=== PATIENT | female | born 1955 | race Two or more races ===

== ENCOUNTER 2017-06-12 11:12 | Emergency (ER) | payer OTHER ==
[~2017-06-12] VITALS: Ht 154.9 cm; Wt 78.0 kg
[2017-06-12 14:10] VITALS: BP 176/88
== END 2017-06-12 14:47 | disposition home or self-care (01) ==
LOC: ER 11:12
DX: M79.605 Pain in left leg (principal); M79.89 Other specified soft tissue disorders; E78.5 Hyperlipidemia, unspecified; I10 Essential (primary) hypertension; E07.9 Disorder of thyroid, unspecified; F17.210 Nicotine dependence, cigarettes, uncomplicated; Z90.710 Acquired absence of both cervix and uterus
CPT/HCPCS: 93971

== ENCOUNTER 2020-12-11 10:59 | Inpatient (IN) | payer OTHER ==
[~2020-12-11] VITALS: Ht 152.4 cm; Wt 107.6 kg
[2020-12-11] MEDS ORDERED: ASPirin 81 mg TAB PO ONE (11:15)
[2020-12-11 11:40] LABS: Eosinophils # (auto) 0 10 ^3/uL (0-0.8); Lymphocytes # (auto) 2.4 10 ^3/uL (0.4-5.4); Nucleated Red Blood Cells % 0.2 %
[2020-12-11 11:42] LABS: Basophils # (auto) 0.1 10 ^3/uL (0-0.2); Basophils % (auto) 1.3 % (0.0-2.0); Eosinophils % (auto) 0.2 % (0.0-7.0); Hematocrit 22.3 % (36.0-46.0); Lymphocytes % (auto) 27.1 % (10.0-50.0); Mean Corpuscular Hemoglobin 16.1 pg (28.0-32.0); Mean Corpuscular Hgb Conc. 29.3 g/dL (32.0-36.0); Mean Corpuscular Volume 54.9 fL (80.0-100.0); Monocytes # (auto) 0.8 10 ^3/uL (0-1.3); Monocytes % (auto) 8.4 % (0.0-12.0); Neutrophils # (auto) 5.7 10 ^3/uL (1.6-8.6); Red Blood Cells 4.06 10^6/uL (4.0-5.20); Red Cell Distribution Width 19.9 % (11.8-14.3)
[2020-12-11 12:09] LABS: Anion Gap 8 (5-15); Blood Urea Nitrogen 5 mg/dL (7-18); Calcium 9.4 mg/dL (8.5-10.1); Carbon Dioxide 26 mmol/L (21-32); Chloride 102 mmol/L (98-107); Glucose 104 mg/dL (74-106); Magnesium 2.5 mg/dL (1.6-2.6); Sodium 136 mmol/L (136-145)
[2020-12-11 12:16] LABS: Alanine Aminotransferase 13 U/L (13-56); Alkaline Phosphatase 117 U/L (45-117); Aspartate Aminotransferase 12 U/L (15-37); BUN/Creatinine Ratio 6.2; Bilirubin, Total 0.3 mg/dL (0.2-1.0); GFR African American 91 mL/min; GFR Non-African American 75 mL/min; Hemoglobin 6.5 g/dL (12.2-16.2); Total Protein 8.2 g/dL (6.4-8.2)
[2020-12-11] MEDS ORDERED: MORPHINE SULFATE INJECTION 2 MG/ML SYRG IV PRN ×3 (15:45→19:00)
[2020-12-11] MEDS ORDERED: NITROGLYCERIN 0.4 MG SL TAB SL PRN ×2 (15:45→19:00)
[2020-12-11] MEDS ORDERED: SODIUM FERR GLUC 62.5MG/5ML 125 MG in SODIUM CHL 0.9% 100 ML IV ONE (15:45)
[2020-12-11 16:28] LABS: % Iron Saturation 1.5 % (15-50)
[2020-12-11 17:19] VITALS: BP 133/70
[2020-12-11 17:34] VITALS: BP 145/74
[2020-12-11] MEDS ORDERED: PROCHLORPERAZINE MALEATE 10 MG TAB PO PRN (19:00)
[2020-12-11] MEDS ORDERED: LORazepam 0.5 MG TAB PO PRN (19:00)
[2020-12-11] MEDS ORDERED: HYDROcodone-ACET 5/325MG TAB PO PRN (19:00)
[2020-12-11] MEDS ORDERED: SUCRALFATE 1 GM/10 ML ORAL SUSP PO ONE (19:00)
[2020-12-11] MEDS ORDERED: ALUM & MAG HYDROX-SIMETH LIQ(MAALOX) 30 ML PO PRN (19:00)
[2020-12-11] MEDS ORDERED: LOSARTAN POTASSIUM 50 MG TAB PO ONE (19:00)
[2020-12-11] MEDS ORDERED: hydrALAZINE HCL 20 MG/ML VL IV PRN (19:00)
[2020-12-11] MEDS ORDERED: DOCUSATE SOD 100 MG CAP PO PRN (19:00)
[2020-12-11] MEDS ORDERED: HCTZ 25 MG TAB PO ONE (19:00)
[2020-12-11] MEDS ORDERED: ONDANSETRON HCL 4 MG/2 ML VIAL IV PRN (19:00)
[2020-12-11] MEDS ORDERED: cefTRIAXone 1GM/50ML D5W 50 ML IV ONE (19:00)
[2020-12-11] MEDS ORDERED: PANTOPRAZOLE 40 MG/10 ML VIAL INJ IV ONE (19:00)
[2020-12-11 19:15] VITALS: BP 155/43
[2020-12-11 20:15] VITALS: BP 145/82
[2020-12-11 20:51] LABS: Cholesterol 168 mg/dL (< 200)
[2020-12-11 21:01] LABS: HDL Cholesterol 30 mg/dL (40-59); LDL Cholesterol 113 mg/dL (< 100); Triglycerides 244 mg/dL (< 150)
[2020-12-11 22:00] VITALS: BP 145/82
[2020-12-11] MEDS: SODIUM CHLORIDE 0.9% 1,000 ML IV SCH (22:52)
[2020-12-11] MEDS: SUCRALFATE 1 GM/10 ML ORAL SUSP PO SCH (23:01)
[2020-12-11] MEDS: GEMFIBROZIL 600 MG TAB PO SCH (23:01)
[2020-12-12] MEDS: ACETAMINOPHEN 325 MG TAB PO PRN ×3 (03:33→20:43)
[2020-12-12] MEDS ORDERED: GEMF600T PO (03:46)
[2020-12-12] MEDS ORDERED: LEVO50TA7 PO (03:46)
[2020-12-12] MEDS ORDERED: HYDR25TA4 PO (03:46)
[2020-12-12] MEDS ORDERED: LOSA50TA7 PO (03:46)
[2020-12-12 05:00] VITALS: BP 133/74
[2020-12-12] MEDS: LEVOTHYROXINE SODIUM 50 MCG TAB PO SCH (06:19)
[2020-12-12] MEDS: SUCRALFATE 1 GM/10 ML ORAL SUSP PO SCH ×4 (06:19→21:47)
[2020-12-12] MEDS: cefTRIAXone 1GM/50ML D5W 50 ML IV SCH (08:34)
[2020-12-12 09:00] VITALS: BP 139/54
[2020-12-12] MEDS: PANTOPRAZOLE 40 MG/10 ML VIAL INJ IV SCH (09:59)
[2020-12-12] MEDS: ASPirin 81 mg TAB PO SCH (09:59)
[2020-12-12] MEDS: LOSARTAN POTASSIUM 50 MG TAB PO SCH (10:00)
[2020-12-12] MEDS: HCTZ 25 MG TAB PO SCH (10:00)
[2020-12-12] MEDS: GEMFIBROZIL 600 MG TAB PO SCH ×2 (10:00→21:47)
[2020-12-12] MEDS: EXEMESTANE 25 MG TABLET PO SCH (10:00)
[2020-12-12] MEDS ORDERED: ANASTRAZOLE 1 MG TABLET PO SCH (10:00)
[2020-12-12] MEDS: SODIUM CHLORIDE 0.9% 1,000 ML IV SCH ×2 (11:40→20:31)
[2020-12-12] MEDS ORDERED: IRON SUCROSE COMPLEX 200 MG in SODIUM CHL 0.9% 100 ML IV SCH (12:00)
[2020-12-12 13:00] VITALS: BP 133/75
[2020-12-12 13:47] LABS: Eosinophils # (auto) 0 10 ^3/uL (0-0.8); Hematocrit 25.6 % (36.0-46.0); Hemoglobin 7.6 g/dL (12.2-16.2); Mean Corpuscular Hgb Conc. 29.5 g/dL (32.0-36.0); Monocytes # (auto) 0.5 10 ^3/uL (0-1.3); Neutrophils # (auto) 4.6 10 ^3/uL (1.6-8.6)
[2020-12-12 13:49] LABS: Basophils # (auto) 0 10 ^3/uL (0-0.2); Basophils % (auto) 0.7 % (0.0-2.0); Eosinophils % (auto) 0.4 % (0.0-7.0); Lymphocytes # (auto) 1.8 10 ^3/uL (0.4-5.4); Lymphocytes % (auto) 25.7 % (10.0-50.0); Mean Corpuscular Volume 60.9 fL (80.0-100.0); Monocytes % (auto) 6.7 % (0.0-12.0); Neutrophils % (auto) 66.5 % (37.0-80.0); Nucleated Red Blood Cells % 1.2 %; Red Blood Cells 4.21 10^6/uL (4.0-5.20)
[2020-12-12 13:59] LABS: Red Cell Distribution Width 27.1 % (11.8-14.3)
[2020-12-12] MEDS: SODIUM FERR GLUC 62.5MG/5ML 125 MG in SODIUM CHL 0.9% 100 ML IV SCH (15:32)
[2020-12-12 17:00] VITALS: BP 128/78
[2020-12-12 22:00] VITALS: BP 137/60
[2020-12-13 05:00] VITALS: BP 112/70
[2020-12-13] MEDS: SUCRALFATE 1 GM/10 ML ORAL SUSP PO SCH ×4 (06:20→21:19)
[2020-12-13] MEDS: LEVOTHYROXINE SODIUM 50 MCG TAB PO SCH (06:20)
[2020-12-13 07:30] LABS: Basophils # (auto) 0.1 10 ^3/uL (0-0.2); Mean Corpuscular Volume 60.9 fL (80.0-100.0)
[2020-12-13 07:31] LABS: Eosinophils # (auto) 0.1 10 ^3/uL (0-0.8); Eosinophils % (auto) 1.3 % (0.0-7.0); Hematocrit 25.5 % (36.0-46.0); Hemoglobin 7.6 g/dL (12.2-16.2); Lymphocytes # (auto) 2.3 10 ^3/uL (0.4-5.4); Mean Corpuscular Hemoglobin 18.2 pg (28.0-32.0); Monocytes # (auto) 0.6 10 ^3/uL (0-1.3); Monocytes % (auto) 7.7 % (0.0-12.0); Neutrophils # (auto) 5.1 10 ^3/uL (1.6-8.6); Nucleated Red Blood Cells % 1.4 %; Red Blood Cells 4.19 10^6/uL (4.0-5.20); White Blood Cell 8.3 10^3/uL (4.4-10.8)
[2020-12-13 07:33] LABS: Red Cell Distribution Width 27.3 % (11.8-14.3)
[2020-12-13 07:49] LABS: Potassium 4.3 mmol/L (3.5-5.1)
[2020-12-13 07:51] LABS: INR 1.05 (0.9-1.15); Partial Thromboplastin Time 24.6 sec (23.6-33.0)
[2020-12-13 07:54] LABS: Albumin 3.3 g/dL (3.4-5.0); BUN/Creatinine Ratio 9.3; Bilirubin, Total 0.3 mg/dL (0.2-1.0); Calcium 8.9 mg/dL (8.5-10.1); Magnesium 2.6 mg/dL (1.6-2.6)
[2020-12-13 07:59] LABS: Phosphorus 4.2 mg/dL (2.5-4.90); Total Protein 7.2 g/dL (6.4-8.2)
[2020-12-13] MEDS: cefTRIAXone 1GM/50ML D5W 50 ML IV SCH (08:45)
[2020-12-13 09:00] VITALS: BP 142/79
[2020-12-13] MEDS: EXEMESTANE 25 MG TABLET PO SCH (10:00)
[2020-12-13] MEDS: PANTOPRAZOLE 40 MG/10 ML VIAL INJ IV SCH ×2 (10:57→21:19)
[2020-12-13] MEDS: ASPirin 81 mg TAB PO SCH (10:57)
[2020-12-13] MEDS: HCTZ 25 MG TAB PO SCH (10:58)
[2020-12-13] MEDS: LOSARTAN POTASSIUM 50 MG TAB PO SCH (10:58)
[2020-12-13] MEDS: GEMFIBROZIL 600 MG TAB PO SCH ×2 (10:59→21:19)
[2020-12-13] MEDS: SODIUM FERR GLUC 62.5MG/5ML 125 MG in SODIUM CHL 0.9% 100 ML IV SCH (12:30)
[2020-12-13 13:00] VITALS: BP 133/77
[2020-12-13] MEDS: SODIUM CHLORIDE 0.9% 1,000 ML IV SCH (21:00)
[2020-12-13 22:11] VITALS: BP 145/78
[2020-12-14 04:57] VITALS: BP 117/58
[2020-12-14 05:57] LABS: Basophils # (auto) 0.1 10 ^3/uL (0-0.2); Eosinophils # (auto) 0.1 10 ^3/uL (0-0.8); Hemoglobin 7.7 g/dL (12.2-16.2); Nucleated Red Blood Cells % 1.5 %
[2020-12-14 06:00] LABS: Basophils % (auto) 0.8 % (0.0-2.0); Eosinophils % (auto) 1.1 % (0.0-7.0); Hematocrit 25.7 % (36.0-46.0); Lymphocytes # (auto) 2.1 10 ^3/uL (0.4-5.4); Lymphocytes % (auto) 17.7 % (10.0-50.0); Mean Corpuscular Hemoglobin 18.2 pg (28.0-32.0); Mean Corpuscular Hgb Conc. 29.8 g/dL (32.0-36.0); Mean Corpuscular Volume 61.2 fL (80.0-100.0); Monocytes # (auto) 0.6 10 ^3/uL (0-1.3); Monocytes % (auto) 5.4 % (0.0-12.0); Neutrophils # (auto) 8.8 10 ^3/uL (1.6-8.6); White Blood Cell 11.8 10^3/uL (4.4-10.8)
[2020-12-14 06:20] LABS: INR 1.05 (0.9-1.15); Partial Thromboplastin Time 24.8 sec (23.6-33.0)
[2020-12-14 06:21] LABS: Potassium 3.8 mmol/L (3.5-5.1)
[2020-12-14 06:26] LABS: Red Cell Distribution Width 27.5 % (11.8-14.3)
[2020-12-14] MEDS: SUCRALFATE 1 GM/10 ML ORAL SUSP PO SCH ×4 (06:28→21:38)
[2020-12-14 06:29] LABS: Albumin 3.4 g/dL (3.4-5.0); BUN/Creatinine Ratio 11.6; Calcium 9.2 mg/dL (8.5-10.1); Magnesium 2.5 mg/dL (1.6-2.6)
[2020-12-14] MEDS: LEVOTHYROXINE SODIUM 50 MCG TAB PO SCH (06:29)
[2020-12-14 06:31] LABS: Bilirubin, Total 0.3 mg/dL (0.2-1.0); Phosphorus 4.6 mg/dL (2.5-4.90); Total Protein 7.4 g/dL (6.4-8.2)
[2020-12-14 08:00] VITALS: BP 128/70
[2020-12-14] MEDS: cefTRIAXone 1GM/50ML D5W 50 ML IV SCH (08:32)
[2020-12-14 09:04] VITALS: BP 128/70
[2020-12-14] MEDS: EXEMESTANE 25 MG TABLET PO SCH (09:46)
[2020-12-14] MEDS: ASPirin 81 mg TAB PO SCH ×2 (09:46→14:23)
[2020-12-14] MEDS: HCTZ 25 MG TAB PO SCH (09:48)
[2020-12-14] MEDS: PANTOPRAZOLE 40 MG/10 ML VIAL INJ IV SCH ×2 (09:48→21:37)
[2020-12-14] MEDS: GEMFIBROZIL 600 MG TAB PO SCH ×2 (09:48→21:37)
[2020-12-14] MEDS: LOSARTAN POTASSIUM 50 MG TAB PO SCH (09:48)
[2020-12-14] MEDS ORDERED: LIDOCAINE VISCOUS 2% 15ML UD ONE (12:30)
[2020-12-14] MEDS ORDERED: SODIUM CHLORIDE LOCK 10 ML ONE (12:30)
[2020-12-14] MEDS ORDERED: diphenhdrAMINE HCL 50 MG/1 ML VL ONE (12:31)
[2020-12-14] MEDS: SODIUM CHLORIDE 0.9% 1,000 ML IV SCH (12:42)
[2020-12-14] MEDS: fentaNYL CITRATE 100 MCG/2 ML VL ONE ×2 (12:44→12:47)
[2020-12-14] MEDS: MIDAZOLAM HCL 5 MG/ML-1ML VIAL ONE ×2 (12:44→12:47)
[2020-12-14 13:00] VITALS: BP 128/72
[2020-12-14] MEDS ORDERED: GOLYTELY 4L KIT PO ONE (14:00)
[2020-12-14] MEDS: SODIUM FERR GLUC 62.5MG/5ML 125 MG in SODIUM CHL 0.9% 100 ML IV SCH (15:00)
[2020-12-14 17:00] VITALS: BP 136/88
[2020-12-14] MEDS: ACETAMINOPHEN 325 MG TAB PO PRN (21:41)
[2020-12-14 22:00] VITALS: BP 139/83
[2020-12-15 05:00] VITALS: BP 111/64
[2020-12-15] MEDS: SODIUM CHLORIDE 0.9% 1,000 ML IV SCH ×2 (06:20→23:00)
[2020-12-15] MEDS: cefTRIAXone 1GM/50ML D5W 50 ML IV SCH (08:39)
[2020-12-15 09:30] VITALS: BP 124/72
[2020-12-15] MEDS: LEVOTHYROXINE SODIUM 50 MCG TAB PO SCH (09:31)
[2020-12-15] MEDS: GEMFIBROZIL 600 MG TAB PO SCH ×2 (09:31→21:47)
[2020-12-15] MEDS: LOSARTAN POTASSIUM 50 MG TAB PO SCH (09:32)
[2020-12-15] MEDS: HCTZ 25 MG TAB PO SCH (09:32)
[2020-12-15] MEDS: ASPirin 81 mg TAB PO SCH (09:32)
[2020-12-15] MEDS: EXEMESTANE 25 MG TABLET PO SCH (09:34)
[2020-12-15] MEDS: PANTOPRAZOLE 40 MG/10 ML VIAL INJ IV SCH ×2 (09:36→21:48)
[2020-12-15] MEDS: SUCRALFATE 1 GM/10 ML ORAL SUSP PO SCH ×3 (11:27→21:47)
[2020-12-15] MEDS ORDERED: diphenhdrAMINE HCL 50 MG/1 ML VL ONE (12:16)
[2020-12-15] MEDS: fentaNYL CITRATE 100 MCG/2 ML VL ONE ×2 (14:53→14:56)
[2020-12-15] MEDS: MIDAZOLAM HCL 5 MG/ML-1ML VIAL ONE ×2 (14:53→14:56)
[2020-12-15] MEDS: SODIUM FERR GLUC 62.5MG/5ML 125 MG in SODIUM CHL 0.9% 100 ML IV SCH (16:00)
[2020-12-15 17:00] VITALS: BP 128/62
[2020-12-15 22:00] VITALS: BP 111/62
[2020-12-16 05:00] VITALS: BP 121/70
[2020-12-16 05:23] LABS: Basophils # (auto) 0.1 10 ^3/uL (0-0.2); Eosinophils # (auto) 0.1 10 ^3/uL (0-0.8); Monocytes # (auto) 0.7 10 ^3/uL (0-1.3); Monocytes % (auto) 7.4 % (0.0-12.0)
[2020-12-16 05:26] LABS: Basophils % (auto) 0.9 % (0.0-2.0); Eosinophils % (auto) 1.6 % (0.0-7.0); Hematocrit 26.7 % (36.0-46.0); Hemoglobin 8.3 g/dL (12.2-16.2); Lymphocytes # (auto) 1.7 10 ^3/uL (0.4-5.4); Lymphocytes % (auto) 17.8 % (10.0-50.0); Mean Corpuscular Hemoglobin 19.6 pg (28.0-32.0); Mean Corpuscular Hgb Conc. 31.1 g/dL (32.0-36.0); Mean Corpuscular Volume 63.2 fL (80.0-100.0); Neutrophils # (auto) 6.7 10 ^3/uL (1.6-8.6); Neutrophils % (auto) 72.3 % (37.0-80.0); Nucleated Red Blood Cells % 0.3 %; Red Blood Cells 4.23 10^6/uL (4.0-5.20); White Blood Cell 9.3 10^3/uL (4.4-10.8)
[2020-12-16 05:45] LABS: Red Cell Distribution Width 28.9 % (11.8-14.3)
[2020-12-16 05:47] LABS: Potassium 4.1 mmol/L (3.5-5.1)
[2020-12-16 05:52] LABS: BUN/Creatinine Ratio 12.8
[2020-12-16] MEDS: SUCRALFATE 1 GM/10 ML ORAL SUSP PO SCH ×2 (07:41→12:16)
[2020-12-16] MEDS: LEVOTHYROXINE SODIUM 50 MCG TAB PO SCH (07:42)
[2020-12-16 09:00] VITALS: BP 117/68
[2020-12-16] MEDS: cefTRIAXone 1GM/50ML D5W 50 ML IV SCH (09:00)
[2020-12-16] MEDS: PANTOPRAZOLE 40 MG/10 ML VIAL INJ IV SCH (10:00)
[2020-12-16] MEDS ORDERED: PANT40TA2 PO (10:11)
[2020-12-16] MEDS ORDERED: SUCR1SUS10 PO (10:11)
[2020-12-16] MEDS: GEMFIBROZIL 600 MG TAB PO SCH (10:32)
[2020-12-16] MEDS: HCTZ 25 MG TAB PO SCH (10:32)
[2020-12-16] MEDS: ASPirin 81 mg TAB PO SCH (10:32)
[2020-12-16] MEDS: LOSARTAN POTASSIUM 50 MG TAB PO SCH (10:33)
[2020-12-16] MEDS: EXEMESTANE 25 MG TABLET PO SCH (10:34)
[2020-12-16] MEDS: SODIUM FERR GLUC 62.5MG/5ML 125 MG in SODIUM CHL 0.9% 100 ML IV SCH (12:00)
[2020-12-16 13:00] VITALS: BP 130/74
[2020-12-16 13:13] VITALS: BP 130/74
== END 2020-12-16 14:15 | disposition home or self-care (01) | DRG 378 ==
LOC: ER 10:59 → TELE 15:38 → TELE-WESTW 20:01
PROVIDERS: ADMIT Hospitalist; ATTEND Internal Medicine Pulmonary Disease
PROC: 30233N1 Transfusion of Nonautologous Red Blood Cells into Peripheral Vein, Percutaneous Approach (ICD-10-PCS; 2020-12-11)
PROC: 0DB68ZX Excision of Stomach, Via Natural or Artificial Opening Endoscopic, Diagnostic (ICD-10-PCS; principal; 2020-12-14 12:49)
PROC: 0DJD8ZZ Inspection of Lower Intestinal Tract, Via Natural or Artificial Opening Endoscopic (ICD-10-PCS; 2020-12-15)
DX: K92.2 Gastrointestinal hemorrhage, unspecified (principal); N39.0 Urinary tract infection, site not specified; I16.9 Hypertensive crisis, unspecified; I48.91 Unspecified atrial fibrillation; D50.0 Iron deficiency anemia secondary to blood loss (chronic); E78.5 Hyperlipidemia, unspecified; I10 Essential (primary) hypertension; F17.210 Nicotine dependence, cigarettes, uncomplicated; E66.3 Overweight; Z20.822 Contact with and (suspected) exposure to COVID-19; K64.8 Other hemorrhoids; Z79.811 Long term (current) use of aromatase inhibitors; Z85.3 Personal history of malignant neoplasm of breast; Z90.710 Acquired absence of both cervix and uterus; Z92.3 Personal history of irradiation; Z68.26 Body mass index [BMI] 26.0-26.9, adult
CPT/HCPCS: 36415; 36430; 43239; 45378; 71046; 80048; 80053; 80061; 83036; 83540; 83550; 83735; 83880; 84100; 84484; 85025; 85610; 85730; 86850; 86900; 86901; 86920; 87040; 87426; 93005; 93306; 96365; 96375; 99291; C9113; G0378; J0696; J2250; Q0164

== ENCOUNTER 2022-09-01 11:18 | Inpatient (IN) | payer OTHER ==
[~2022-09-01] VITALS: Ht 152.4 cm; Wt 75.0 kg
[~2022-09-01 11:18] MED LIST: GEMF600T PO; HYDR25TA4 PO; LEVO50TA7 PO; LOSA50TA12 PO; PANT40TA2 PO; SUCR1SUS26 PO
[2022-09-01] MEDS ORDERED: IOHEXOL 350 MG/ML 100ML IJ ONE (12:47)
[2022-09-01 14:10] LABS: Basophils # (auto) 0 10 ^3/uL (0-0.2); Basophils % (auto) 0.5 % (0.0-2.0); Eosinophils # (auto) 0 10 ^3/uL (0-0.8); Eosinophils % (auto) 0.5 % (0.0-7.0); Hematocrit 41.4 % (36.0-46.0); Hemoglobin 13.8 g/dL (12.2-16.2); Lymphocytes # (auto) 1.7 10 ^3/uL (0.4-5.4); Mean Corpuscular Hemoglobin 27.4 pg (28.0-32.0); Mean Corpuscular Hgb Conc. 33.3 g/dL (32.0-36.0); Mean Corpuscular Volume 82.1 fL (80.0-100.0); Monocytes # (auto) 0.7 10 ^3/uL (0-1.3); Monocytes % (auto) 8.7 % (0.0-12.0); Neutrophils # (auto) 5.4 10 ^3/uL (1.6-8.6); Neutrophils % (auto) 68.3 % (37.0-80.0); Nucleated Red Blood Cells % 0.1 %; Red Blood Cells 5.04 10^6/uL (4.0-5.20); White Blood Cell 7.9 10^3/uL (4.4-10.8)
[2022-09-01 14:16] LABS: Albumin 3.9 g/dL (3.4-5.0); BUN/Creatinine Ratio 6.1 (10.0-20.0); Calcium 8.9 mg/dL (8.5-10.1); Magnesium 2.3 mg/dL (1.6-2.6); Potassium 3.8 mmol/L (3.5-5.1); Red Cell Distribution Width 21.5 % (11.8-14.3)
[2022-09-01 14:18] LABS: INR 1.03 (0.9-1.15); Partial Thromboplastin Time 26.2 SEC (24.5-34.5)
[2022-09-01 14:19] LABS: Bilirubin, Total 0.5 mg/dL (0.2-1.0); Total Protein 7.5 g/dL (6.4-8.2)
[2022-09-01] MEDS ORDERED: ONDANSETRON HCL 4 MG/2 ML VIAL IV PRN (15:00)
[2022-09-01] MEDS ORDERED: ARTIFICIAL TEARS 15ml EACHEYE PRN (15:30)
[2022-09-01] MEDS: ACETAMINOPHEN 325 MG TAB PO PRN (19:45)
[2022-09-01] MEDS ORDERED: EXEM25TA4 PO (21:55)
[2022-09-01] MEDS ORDERED: ASPI1TAB20 PO (21:56)
[2022-09-01] MEDS ORDERED: CHOL20007 OR (21:56)
[2022-09-01] MEDS ORDERED: METO25TA93 PO (21:57)
[2022-09-01 22:00] VITALS: BP 135/73
[2022-09-01] MEDS: TEMAZEPAM 15 MG CAP PO PRN (22:19)
[2022-09-02] VITALS (7 sets, daily range): BP systolic 119–162; BP diastolic 65–85
[2022-09-02 05:24] LABS: Basophils # (auto) 0.1 10 ^3/uL (0-0.2); Basophils % (auto) 0.7 % (0.0-2.0); Eosinophils # (auto) 0.2 10 ^3/uL (0-0.8); Eosinophils % (auto) 2.1 % (0.0-7.0); Hematocrit 40.7 % (36.0-46.0); Hemoglobin 13.6 g/dL (12.2-16.2); Lymphocytes # (auto) 2.1 10 ^3/uL (0.4-5.4); Lymphocytes % (auto) 28.5 % (10.0-50.0); Mean Corpuscular Hemoglobin 27.8 pg (28.0-32.0); Mean Corpuscular Hgb Conc. 33.5 g/dL (32.0-36.0); Monocytes # (auto) 0.9 10 ^3/uL (0-1.3); Neutrophils # (auto) 4.2 10 ^3/uL (1.6-8.6); Neutrophils % (auto) 56.7 % (37.0-80.0); Nucleated Red Blood Cells % 0.2 %; Red Cell Distribution Width 21.7 % (11.8-14.3); White Blood Cell 7.4 10^3/uL (4.4-10.8)
[2022-09-02 05:39] LABS: BUN/Creatinine Ratio 8.5 (10.0-20.0); Calcium 8.7 mg/dL (8.5-10.1); Potassium 3.5 mmol/L (3.5-5.1)
[2022-09-02] MEDS: LEVOTHYROXINE SODIUM 50 MCG TAB PO SCH (06:08)
[2022-09-02] MEDS: ENOXAPARIN SOD 40 MG/0.4 ML SYRINGE SC SCH (10:51)
[2022-09-02] MEDS: LOSARTAN POTASSIUM 50 MG TAB PO SCH (10:52)
[2022-09-02] MEDS: HCTZ 25 MG TAB PO SCH (10:52)
[2022-09-02] MEDS: PANTOPRAZOLE 40 MG TAB PO SCH (10:53)
[2022-09-02] MEDS: ACETAMINOPHEN 325 MG TAB PO PRN ×2 (15:20→22:51)
[2022-09-02] MEDS ORDERED: ASPirin 81 mg TAB PO ONE (16:45)
[2022-09-02] MEDS ORDERED: LORazepam 2MG/ML-1ML VIAL IV PRN (21:00)
[2022-09-02] MEDS: TEMAZEPAM 15 MG CAP PO PRN (22:50)
[2022-09-03 05:00] VITALS: BP 130/76
[2022-09-03] MEDS: LEVOTHYROXINE SODIUM 50 MCG TAB PO SCH (06:41)
[2022-09-03] MEDS: ACETAMINOPHEN 325 MG TAB PO PRN ×3 (06:51→22:47)
[2022-09-03 08:00] VITALS: BP 145/85
[2022-09-03 09:00] VITALS: BP 145/85
[2022-09-03] MEDS: PANTOPRAZOLE 40 MG TAB PO SCH (10:44)
[2022-09-03] MEDS: HCTZ 25 MG TAB PO SCH (10:44)
[2022-09-03] MEDS: ASPirin 81 mg TAB PO SCH (10:44)
[2022-09-03] MEDS: LOSARTAN POTASSIUM 50 MG TAB PO SCH (10:44)
[2022-09-03] MEDS: ENOXAPARIN SOD 40 MG/0.4 ML SYRINGE SC SCH (10:45)
[2022-09-03 13:00] VITALS: BP 139/86
[2022-09-03 17:00] VITALS: BP 148/81
[2022-09-03 22:00] VITALS: BP 118/62
[2022-09-03] MEDS: TEMAZEPAM 15 MG CAP PO PRN (22:46)
[2022-09-04 05:00] VITALS: BP 119/68
[2022-09-04 06:13] LABS: Cholesterol 250 mg/dL (< 200); Triglycerides 443 mg/dL (< 150)
[2022-09-04 06:16] LABS: HDL Cholesterol 41 mg/dL (40-59)
[2022-09-04] MEDS: LEVOTHYROXINE SODIUM 50 MCG TAB PO SCH (06:31)
[2022-09-04] MEDS: ACETAMINOPHEN 325 MG TAB PO PRN ×2 (06:31→22:25)
[2022-09-04 09:00] VITALS: BP 137/74
[2022-09-04] MEDS: ENOXAPARIN SOD 40 MG/0.4 ML SYRINGE SC SCH (10:04)
[2022-09-04] MEDS: PANTOPRAZOLE 40 MG TAB PO SCH (10:04)
[2022-09-04] MEDS: HCTZ 25 MG TAB PO SCH (10:04)
[2022-09-04] MEDS: ASPirin 81 mg TAB PO SCH (10:05)
[2022-09-04] MEDS: LOSARTAN POTASSIUM 50 MG TAB PO SCH (10:05)
[2022-09-04 13:00] VITALS: BP 119/78
[2022-09-04 17:00] VITALS: BP 140/68
[2022-09-04 22:00] VITALS: BP 132/81
[2022-09-04] MEDS: TEMAZEPAM 15 MG CAP PO PRN (22:24)
[2022-09-05 05:00] VITALS: BP 134/73
[2022-09-05] MEDS: LEVOTHYROXINE SODIUM 50 MCG TAB PO SCH (07:32)
[2022-09-05] MEDS: ACETAMINOPHEN 325 MG TAB PO PRN (07:32)
[2022-09-05 09:00] VITALS: BP 141/77
[2022-09-05] MEDS: ASPirin 81 mg TAB PO SCH (09:16)
[2022-09-05] MEDS: LOSARTAN POTASSIUM 50 MG TAB PO SCH (09:17)
[2022-09-05] MEDS: HCTZ 25 MG TAB PO SCH (09:17)
[2022-09-05] MEDS: PANTOPRAZOLE 40 MG TAB PO SCH (09:17)
[2022-09-05] MEDS: ENOXAPARIN SOD 40 MG/0.4 ML SYRINGE SC SCH (09:18)
[2022-09-05] MEDS ORDERED: ATO40T PO (09:39)
[2022-09-05 12:56] VITALS: BP 117/72
[2022-09-05 15:48] VITALS: BP 117/72
== END 2022-09-05 17:50 | disposition home or self-care (01) | DRG 69 ==
LOC: ER 11:18 → OVERFLOW 15:22 → EAST 21:00
PROVIDERS: ADMIT Nurse Practitioner; ATTEND Internal Medicine Geriatric Medicine
DX: G45.9 Transient cerebral ischemic attack, unspecified (principal); E03.9 Hypothyroidism, unspecified; E78.5 Hyperlipidemia, unspecified; I10 Essential (primary) hypertension; F17.210 Nicotine dependence, cigarettes, uncomplicated; H53.8 Other visual disturbances; R47.81 Slurred speech; R20.0 Anesthesia of skin; R20.2 Paresthesia of skin; Z79.82 Long term (current) use of aspirin; Z82.49 Family history of ischemic heart disease and other diseases of the circulatory system; Z92.3 Personal history of irradiation; Z90.710 Acquired absence of both cervix and uterus; Z85.3 Personal history of malignant neoplasm of breast; Z79.899 Other long term (current) drug therapy
CPT/HCPCS: 36415; 70450; 70496; 70540; 70551; 71045; 80048; 80053; 80061; 82962; 83735; 83880; 84443; 84484; 85025; 85610; 85730; 93005; 93306; 93886; G0378

== ENCOUNTER → 2024-01-04 | Day surgery (SDC) | payer OTHER ==
[~2024-01-04] VITALS: Ht 152.4 cm; Wt 63.5 kg
[~2024-01-04] MED LIST changes: +ASPI1TAB20 PO; +ATOR-507 PO; +CHOL20007 OR; +DexAMETHasone SOD PHOS 10MG/1ML VIAL INJ ONE; +EXEM25TA4 PO; +FER325T PO; -GEMF600T PO; +HYDR12.59 PO; -HYDR25TA4 PO; +MEPERIDINE HCL (25 MG/ML) 1ML VIAL ONE; +METO25TA93 PO; +MIDAZOLAM HCL 2MG/2ML 2ml VIAL (1mg/ml) ONE; -PANT40TA2 PO; +PROPOFOL 10 MG/ML 20 ML IV ONE; -SUCR1SUS26 PO; +fentaNYL CITRATE 100 MCG/2 ML VL ONE
--- NOTE | 2024-01-04 11:24 | DVHHP2 ---
GI H&P Pre-Op Assessment Date: 01/04/24 Chief complaint: blood in stool HPI: per clinic note Past medical history: per clinic note Past surgical history: per clinic note Family history: per clinic note Physical exam: General: NAD, AAOX3 HEENT: PERRL, no scleral icterus, normal hearing, gums without lesions or ble eding, oropharynx clear without erythema or exudate. Neck: Supple without enlargement of the thyroid, or lymphadenopathy. Chest: Normal size and shape, no tenderness, lung mckeon clear to auscultation and percussion, nonlabored breathing. Heart: RRR, no murmur Abdomen: non-distended, no tenderness to palpation, +BS, no hepatosplenomegaly Extremities: no edema Neurological: CN II-XII intact, sensation intact in all extremities, 5+ strength in all extremities Skin: No rashes, No jaundice Assessment: - blood in stool Plan: - Colonoscopy - Risks (bleeding, infection, perforation, reaction to sedation medications and cardiopulmonary arrest) and benefit of the procedure were explained to patient. Patient agrees to undergo the procedure. CATE BALL MD Jan 04, 2024 11:24
--- NOTE | 2024-01-04 13:32 | DVHOP2 ---
Operative Report DATE OF OPERATION: 01/04/24 PROCEDURE: Colonoscopy. PREOPERATIVE INDICATION: The patient is a 68 -year-old female undergoing colonoscopy for blood in stool. POSTOPERATIVE DIAGNOSES: 1. Melanosis coli 2. Internal hemorrhoids PROCEDURE PERFORMED BY: Reji Leach M.D. SCOPE: Olympus videocolonoscope. ASA CLASS: 3 PREOPERATIVE MEDICATIONS: MAC with Dr Guillermo PROCEDURE IN DETAIL: After obtaining an informed consent, the patient was placed on left lateral decubitus position. She was then sedated with the above medications. A rectal examination was performed that was normal. The colonoscope was then passed through the anus into the rectosigmoid and through the descending, transverse, and ascending colon up to the cecum with visualization of the appendiceal orifice, base of the cecum and the ileocecal valve. No mass or polyp was observed. There was melanosis coli. There were internal hemorrhoids. The colonoscope was then withdrawn. The patient tolerated the procedure well without difficulty. WITHDRAWAL TIME: 6 minutes QUALITY OF THE PREP: [place] Bowel Prep score: 6 COMPLICATIONS : None SPECIMENS: None DISPOSITION: D/C to home PLAN: 1. She can get a repeat colonoscopy in 10 years for colon cancer screening. REJI LEACH MD Jan 04, 2024 13:32
--- NOTE | 2024-01-04 13:32 | DVHDS2 ---
Physician Discharge Progress N Final Diagnosis: Melanosis coli, internal hemorrhoids Operations or Procedures: Operations or Procedures Colonoscopy Condition on Discharge: Good Disposition: Home Discharge Instructions: Diet: Regular Activity: No Restrictions, As Tolerated Medications: Resume previous home medications Follow Up Care: Discharge Statement: "Patient was advised to return to the ER or call 911 if any headaches, dizziness, shortness of breath, chest pain, abdominal pain, bleeding, fevers, or worsening of medical condition. Patient was counseled about treatment plan, medications, possible side effects, patientverbalized understanding. All questions were answered to the best of my ability. This discharge took greater then 30 minutes in planning, reviewing doc umentation, counseling the patient, and discussing with other team members." CATE BALL MD Jan 04, 2024 13:32
[2024-01-04 13:35] VITALS: PULSE 49; RESP 17; TEMP 97.8; O2SAT 99
[2024-01-04 14:05] VITALS: BP 139/57; PULSE 53; RESP 12; O2SAT 98
== END | disposition home or self-care (01) ==
LOC: GI 08:51
PROVIDERS: ATTEND Internal Medicine Gastroenterology
DX: K92.1 Melena (principal); K92.2 Gastrointestinal hemorrhage, unspecified; K64.8 Other hemorrhoids; K63.89 Other specified diseases of intestine; E03.9 Hypothyroidism, unspecified; Z79.899 Other long term (current) drug therapy; Z86.73 Personal history of transient ischemic attack (TIA), and cerebral infarction without residual deficits; Z86.2 Personal history of diseases of the blood and blood-forming organs and certain disorders involving the immune mechanism; Z90.710 Acquired absence of both cervix and uterus; Z87.11 Personal history of peptic ulcer disease; Z85.3 Personal history of malignant neoplasm of breast; Z98.890 Other specified postprocedural states; Z87.891 Personal history of nicotine dependence
CPT/HCPCS: 45378; J1100; J2175; J2250; J2704; J3010; J7030

== ENCOUNTER 2024-08-30 11:32 | Emergency (ER) | payer OTHER, MEDICAID ==
[~2024-08-30] VITALS: Ht 154.9 cm; Wt 69.1 kg
[~2024-08-30 11:32] MED LIST changes: -DexAMETHasone SOD PHOS 10MG/1ML VIAL INJ ONE; -MEPERIDINE HCL (25 MG/ML) 1ML VIAL ONE; -MIDAZOLAM HCL 2MG/2ML 2ml VIAL (1mg/ml) ONE; -PROPOFOL 10 MG/ML 20 ML IV ONE; -fentaNYL CITRATE 100 MCG/2 ML VL ONE
[2024-08-30 12:04] LABS: Hematocrit 40.9 % (36.0-46.0); Hemoglobin 14.2 g/dL (12.2-16.2); Mean Corpuscular Hemoglobin 32.6 pg (28.0-32.0); Mean Corpuscular Volume 93.7 fL (80.0-100.0); Nucleated Red Blood Cells % 0.1 %
[2024-08-30 12:10] LABS: Chloride 100 mmol/L (98-107); Potassium 4.1 mmol/L (3.5-5.1)
[2024-08-30 12:11] LABS: Anion Gap 10 (5-15); Calcium 10.4 mg/dL (8.7-10.4); Carbon Dioxide 26 mmol/L (20-31)
[2024-08-30 12:13] LABS: Sodium 136 mmol/L (136-145)
[2024-08-30 12:16] LABS: BUN/Creatinine Ratio 7.9 (10.0-20.0); Blood Urea Nitrogen 6 mg/dL (9-23); Glucose 97 mg/dL (74-106)
[2024-08-30] MEDS: HYDROcodone-ACET 5/325MG TAB PO ONE (12:20)
--- NOTE | 2024-08-30 12:22 | ED.PDOC ---
History of Present Illness HPI Comments This is a 68 year old female presenting to the ED with chief complaint of facial swelling. Patient reports that she woke up yesterday morning with right sided facial swelling with 8/10 pain noted. Patient denies any trauma, fall, dizziness, fever, chills, or headache. Chief Complaint: Face pain Time Seen by MD: 12:21 Primary Care Provider: DR HERNANDEZ Reviewed Notes: Nurses Notes, Medications, Allergies Allergies: Coded Allergies: NO KNOWN ALLERGIES (Unverified , 12/11/20) Home Meds Active Scripts Amoxicillin & Pot Clavulanate (AUGMENTIN TABLET) 875 Mg Tb, 875 MG PO BID for 7 Days, #14 TAB Prov:JAMES BALL MD 08/30/24 Ibuprofen Micronized (MOTRIN TABLET) 600 Mg Tb, 600 MG PO TID PRN, #40 TAB *Black box warning-NSAIDS can increase risk of CT & hypertension, GI irritation, ulceration, bleed, perferation. Do not use post cardiac surgery. Use short duration/lowest effective dose. Prov:JAMES BALL MD 08/30/24 Atorvastatin Calcium (Lipitor) 40 Mg Tab, 1 TAB PO QHSP PRN, #30 TAB 5 Refills Prov:PRABHA ACOSTA MD 09/05/22 Reported Medications Ferrous Sulfate (FERROUS SULFATE) 325 Mg Tb, 325 MG PO, TAB 01/03/24 Hydrochlorothiazide (Hydrochlorothiazide) 12.5 Mg Cap, 12.5 MG PO DAILY, CAP 01/03/24 Metoprolol Succinate (Metoprolol Succinate Er) 25 Mg Tab, 1 TAB PO DAILY, #30 TAB 5 Refills 09/01/22 Aspirin (Aspir-81) 81 Mg Tab, 1 TAB PO DAILY, #90 TAB 3 Refills 09/01/22 Cholecalciferol (VITAMIN D3) 2,000 Unit Tab, 2000 UNIT OR, TAB 09/01/22 Exemestane (EXEMESTANE) 25 Mg Tab, 25 MG PO for CANCER, TAB 09/01/22 Losartan Potassium (Cozaar) 50 Mg Tab, 50 MG PO, TAB 12/12/20 Levothyroxine Sodium (Levothyroxine Sodium) 50 Mcg Tab, 50 MCG PO QAM for 30 Days, MCG 12/12/20 Information Source: Patient Mode of Arrival: Ambulatory Severity: Moderate Timing: Hours Duration: Since onset Prehospital treatment: None Past Medical History PAST MEDICAL HISTORY: Cancer, High Lipids, HTN, Thyroid Surgical History: Hysterectomy Surgical History (Other): Breast cancer surgery NURSE HEAD History: No Pertinent NURSE HEAD History Family History Family History: Unknown Social History Smoker: Quit Greater Than 1 Year, Cigarettes Alcohol: Occasionally Drugs: Denies Drug Use Lives In: Home Constitutional: denies: chills, diaphoresis, fatigue, fever, malaise, sweats, w eakness, others EENTM: reports: others (Rt sided neck swelling); denies: blurred vision, double vision, ear bleeding, ear discharge, ear drainage, ear pain, ear ringing, eye pain, eye redness, hearing loss, mouth pain, mouth swelling, nasal discharge, nose bleeding, nose congestion, nose pain, photophobia, tearing, throat pain, throat swelling, voice changes Respiratory: denies: cough, hemoptysis, orthopnea, SOB at rest, shortness of breath, SOB with excertion, stridor, wheezing, others Cardiovascular: denies: chest pain, dizzy spells, diaphoresis, Dyspnea on exertion, edema, irregular heart beat, left arm pain, lightheadedness, palpitations, PND, syncope, others Gastrointestinal: denies: abdomen distended, abdominal pain, blood streaked bowels, constipated, diarrhea, dysphagia, difficulty swallowing, hematemesis, melena, nausea, poor appetite, poor fluid intake, rectal bleeding, rectal pain, vomiting, others Genitourinary: denies: abnormal vagina bleeding, burning, dyspareunia, dysuria, flank pain, frequency, hematuria, incontinence, pain, , vagina discharge, urgency, others Neurological: denies: dizziness, fainting, headache, left sided numbness, left sided weakness, numbness, paresthesia, pre-existing deficit, right sided nu mbness, right sided weakness, seizure, speech problems, tingling, tremors, weakness, others Musculoskeletal: denies: back pain, gout, joint pain, joint swelling, muscle pain, muscle stiffness, neck pain, others Integumetry: denies: bruises, change in color, change in hair/nails, dryness, laceration, lesions, lumps, rash, wounds, others Allergic/Immunocompromised: denies: Difficulty Healing, Frequent Infections, Hives, Itching, others Hematologic/Lymphatic: denies: anemia, blood clots, easy bleeding, easy bruising, swollen glands, others Endocrine: denies: excessive hunger, excessive sweating, excessive thirst, excessive urination, flushing, intolerance to cold, intolerance to heat, unexplained weight gain, unexplained weight loss, others Psychiatric: denies: anxiety, bipolar disorder, depression, hopeless, panic disorder, schizophrenia, sleepless, suicidal, others All Other Systems: Reviewed and Negative Physical Exam General Appearance: No Apparent Distress, Normal HEENT: Normal ENT Inspection, Pharynx Normal, TMs Normal Neck: Full Range of Motion, Non-Tender, Other (Right anterior cervical lymph nodes enlarged) Respiratory: Chest Non-Tender, Lungs Clear, No Accessory Muscle Use, No Respiratory Distress, Normal Breath Sounds Cardiovascular: No Edema, No JVD, No Murmur, No Gallop, Normal Peripheral Pulses, Regular Rate/Rhythm Breast Exam: Deferred Gastrointestinal: No Organomegaly, Non Tender, No Pulsatile Mass, Normal Bowel Sounds, Soft Genitalia: Deferred Pelvic: Deferred Rectal: Deferred Extremities: No calf tenderness, Normal capillary refill, Normal inspection, Normal range of motion, Non-tender, No pedal edema Musculoskeletal : Apperance: Normal Neurologic: Alert, help desk agent II-XII nml as Tested, No Motor Deficits, Normal Affect, Normal Mood, No Sensory Deficits Cerebellar Function: Normal Reflexes: Normal Skin: Dry, Normal Color, Warm Lymphatic: No Adenopathy Was a procedure done? Was a procedure done?: No Differential Dx Considerations may include: cervical adenopathy, lymphoma, goiter, carotid artery aneurism, abscess X-Ray, Labs, Meds, VS Vital Signs Date Time Temp Pulse Resp B/P (MAP) Pulse Ox O2 Delivery O2 Flow Rate FiO2 08/30/24 12:21 98.1 57 17 137/70 (92) 95 98.1 08/30/24 12:21 57 17 95 Room Air 08/30/24 11:46 98.6 60 20 136/95 (109) 95 98.6 Lab Test 08/30/24 11:50 Range/Units White Blood Count 9.3 4.4-10.8 10^3/uL Red Blood Count 4.37 4.0-5.20 10^6/uL Hemoglobin 14.2 12.2-16.2 g/dL Hematocrit 40.9 36.0-46.0 % Mean Corpuscular Volume 93.7 80.0-100.0 fL Mean Corpuscular Hemoglobin 32.6 H 28.0-32.0 pg Mean Corpuscular Hemoglobin Concent 34.8 32.0-36.0 g/dL Red Cell Distribution Width 13.4 11.8-14.3 % Platelet Count 301 140-450 10^3/uL Mean Platelet Volume 7.0 6.9-10.8 fL Neutrophils (%) (Auto) 71.4 37.0-80.0 % Lymphocytes (%) (Auto) 18.4 10.0-50.0 % Monocytes (%) (Auto) 9.0 0.0-12.0 % Eosinophils (%) (Auto) 0.8 0.0-7.0 % Basophils (%) (Auto) 0.4 0.0-2.0 % Neutrophils # (Auto) 6.6 1.6-8.6 10 ^3/uL Lymphocytes # (Auto) 1.7 0.4-5.4 10 ^3/uL Monocytes # (Auto) 0.8 0-1.3 10 ^3/uL Eosinophils # (Auto) 0.1 0-0.8 10 ^3/uL Basophils # (Auto) 0 0-0.2 10 ^3/uL Nucleated Red Blood Cells 0.1 % Sodium Level 136 136-145 mmol/L Potassium Level 4.1 3.5-5.1 mmol/L Chloride Level 100 98-107 mmol/L Carbon Dioxide Level 26 20-31 mmol/L Anion Gap 10 5-15 Blood Urea Nitrogen 6 L 9-23 mg/dL Creatinine 0.76 0.550-1.02 mg/dL Glomerular Filtration Rate Calc 85 >90 mL/min BUN/Creatinine Ratio 7.9 L 10.0-20.0 Serum Glucose 97 74-106 mg/dL Calcium Level 10.4 8.7-10.4 mg/dL Current Medications Medications (Trade) Dose Ordered Sig/Farheen Route Start Time Stop Time Status Last Admin Acetaminophen/ Hydrocodone Bitart ([place] 5/325MG Tab) 1 tab ONCE ONCE PO 08/30/24 11:45 08/30/24 11:47 DC 08/30/24 12:20 Time of 1ST Reevaluation: 13:19 Reevaluation 1ST: Unchanged Patient Education/Counseling: Diagnosis, Treatment, Prognosis, Need For Follow Up Family Education/Counseling: No Family Present Additional Information Reviewed patient's previous visit(s): 09/01/22 for hemianesthesia The following tests were ordered, and results were reviewed by me: CBC, BMP, CT Neck Additional information was gathered from interviewing the following independent historian: None I reviewed and agreed with the following test results read by other provider: CT Neck I discussed treatments and results with medical personnel and: Patient Comprehensive systems review obtained and negative except for what is stated in the HPI. SEPSIS Sepsis Screen Date sepsis recognized/suspect: Aug 30, 2024 Time Sepsis recognized/suspect: 114 Recent Procedure: No On Antibiotic Therapy: No Respiratory Rate >20: No Heart Rate >90: No Temp<36 C (96.8 F) or >38.3 C: No SBP <90 or MAP <65 mmHG: No New Acute Mental Status Change: No Is the patient on CPAP, BIPAP,: No Physician Orders Neck Without Contrast (08/30/24 11:45) Vital Signs Date Time Temp Pulse Resp B/P (MAP) Pulse Ox O2 Delivery O2 Flow Rate FiO2 08/30/24 12:21 98.1 57 17 137/70 (92) 95 98.1 08/30/24 12:21 57 17 95 Room Air 08/30/24 11:46 98.6 60 20 136/95 (109) 95 98.6 Laboratory Tests Test 08/30/24 11:50 White Blood Count 9.3 10^3/uL (4.4-10.8) Medications Medications Dose Ordered Sig/Farheen Route Start Time Stop Time Status Last Admin Dose Admin Acetaminophen/ Hydrocodone Bitart 1 tab ONCE ONCE PO 08/30/24 11:45 08/30/24 11:47 DC 08/30/24 12:20 Departure 1 Departure Time of Disposition: 13:23 Impression: Primary Impression: Parotiditis Disposition: 01 HOME / SELF CARE / HOMELESS Condition: Good e-Prescriptions Amoxicillin & Pot Clavulanate (AUGMENTIN TABLET) 875 Mg Tb 875 MG PO BID for 7 Days, #14 TAB Prov: JAMES BALL MD 08/30/24 Ibuprofen Micronized (MOTRIN TABLET) 600 Mg Tb 600 MG PO TID PRN, #40 TAB *Black box warning-NSAIDS can increase risk of CT & hypertension, GI irritation, ulceration, bleed, perferation. Do not use post cardiac surgery. Use short duration/lowest effective dose. Prov: JAMES BALL MD 08/30/24 Discharged With: Self Critical Care Note Critical Care Time?: No Stability Stability form required: No Heart Score Heart Score: Heart Score Response (Comments) Value History N/A 0 EKG N/A 0 Age N/A 0 Risk Factors N/A 0 Troponin N/A 0 Total 0 I personally scribed for JAMES BALL MD ([email or web address]) on 08/30/24 at 12:22. Electronically submitted by Tereso Aguilar ([email or web address]). JAMES BALL MD Aug 30, 2024 12:22
--- NOTE | 2024-08-30 13:00 | DVH ---
EXAM: CT NECK WITHOUT CONTRAST HISTORY: right neck mass, right facial swelling COMPARISON: None TECHNIQUE: Helical CT images of the neck were performed without contrast. Sagittal and coronal reform atted images were obtained. This CT exam was performed using one or more of the following dose reduct ion techniques: Automated exposure control, adjustment of the mA and/or kV according to patient size, or use of iterative reconstruction technique. Radiation Dose Information: CT Dose: CTDI volume is 23 .45mGy. Dose-length product is 616.3 mGy*cm. FINDINGS: No radiologically significant cervical lymphadenopathy or mass. The airway is patent. The v ocal cords are symmetric. No abnormal thickening of the epiglottis. There is asymmetric enlargement o f the right parotid gland with adjacent soft tissue swelling. The left parotid gland, submandibular glands, and thyroid are unremarkable. The partially-visualized paranasal sinuses and mastoid air cell s are clear. There are degenerative changes of the bilateral temporomandibular joints, severe on the right and mild on the left. The lung apices are clear. The cervical spinal canal is congenitally narr ow. There is slight anterolisthesis C3 on C4 without jumped facet. There is advanced degenerative dis c disease and facet arthropathy with [id number] spinal canal stenosis at C2-C3 and C3-C4, and m ild spinal canal stenosis at multiple other levels. There is multilevel significant neural foraminal stenosis bilaterally. IMPRESSION: 1. No radiologically significant cervical lymphadenopathy or mass. 2. Right parotid asymmetric enlargement and adjacent soft tissue swelling consistent with parotitis. 3. 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 Recommend follow-up outpatient noncontrast MRI of the lumbar spine for better characterization, especially if the patient complains of upper extremity radicular sympto ms.
[2024-08-30] MEDS ORDERED: IBU600T PO (13:25)
[2024-08-30] MEDS ORDERED: AUG875T PO (13:25)
[2024-08-30 13:39] VITALS: BP 128/69; PULSE 58; RESP 18; TEMP 98.9; O2SAT 98
== END 2024-08-30 13:40 | disposition home or self-care (01) ==
LOC: ER 11:32
DX: K11.20 Sialoadenitis, unspecified (principal); F10.90 Alcohol use, unspecified, uncomplicated; E78.5 Hyperlipidemia, unspecified; I10 Essential (primary) hypertension; Z90.710 Acquired absence of both cervix and uterus; Z85.3 Personal history of malignant neoplasm of breast; Z87.891 Personal history of nicotine dependence; Z79.899 Other long term (current) drug therapy; Z79.890 Hormone replacement therapy; Z79.82 Long term (current) use of aspirin; Y90.9 Presence of alcohol in blood, level not specified
CPT/HCPCS: 36415; 70490; 80048; 85025